=== PATIENT | female | born 2005 | race Caucasian/White ===

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

== ENCOUNTER 2025-01-28 12:45 | Day surgery (SDC) | payer BC ==
[~2025-01-28 12:45] MED LIST: Dexamethasone 4 MG/ML 5 ML MDV ONE; Ketorolac 30 MG/ML SDV ONE; Lidocaine 2% 5 ML SDV ONE; Ondansetron 4 MG/2 ML SDV ONE; Propofol 200 MG/20 ML SDV ONE; Sugammadex Sodium 200 MG/2 ML VIAL IV ONE; fentaNYL 100 MCG/2 ML SDV ONE
[2025-01-28] MEDS ORDERED: Midazolam 1 MG/ML 2 ML SDV ONE (12:55)
[2025-01-28] MEDS ORDERED: fentaNYL 100 MCG/2 ML SDV ONE (13:40)
[2025-01-28] MEDS: Piperacillin/Tazobactam 4.5 GM in Sodium Chloride 0.9% 100 ML IV ONE (13:44)
[2025-01-28] MEDS ORDERED: Rocuronium 50 MG/5 ML Vial ONE (13:54)
[2025-01-28] MEDS ORDERED: Lactated Ringers 1,000 ML ONE (13:58)
[2025-01-28] MEDS: EPINEPHrine 1 MG/ML SDV ONE (14:30)
[2025-01-28] MEDS: Bupivacaine 0.5% 10 ML SDV ONE (14:30)
[2025-01-28] MEDS: Lidocaine 1% 20 ML MDV ONE (14:44)
[2025-01-28] MEDS ORDERED: Lactated Ringers 1,000 ML IV ONE (15:15)
[2025-01-28] MEDS ORDERED: Ondansetron 4 MG/2 ML SDV IVPUSH PRN (15:26)
[2025-01-28] MEDS ORDERED: HYDROmorphone 0.5 MG/0.5 ML Syringe IVPUSH PRN (15:26)
[2025-01-28] MEDS ORDERED: fentaNYL 100 MCG/2 ML SDV IVPUSH PRN (15:26)
[2025-01-28] MEDS ORDERED: Acetaminophen/oxyCODONE 325-5 MG Tab PO PRN (16:05)
== END 2025-01-28 16:40 | disposition home or self-care (01) ==
LOC: JD.ED 12:45 → JD.SDS 13:35
PROVIDERS: ATTEND Surgery
DX: K35.33 Acute appendicitis with perforation, localized peritonitis, and gangrene, with abscess (principal)
CPT/HCPCS: 44970; J0171; J0665; J1100; J1885; J2003; J2250; J2405; J2543; J2704; J3010; J7120; 00840; 99140; J3490